=== PATIENT | female | born 1980 | race American Indian/Alaskan Native ===

== ENCOUNTER 2025-05-13 08:15 | Day surgery (SDC) | payer BC ==
[2025-05-07 08:52] VITALS: BP 135/75
[~2025-05-13] VITALS: Ht 170.2 cm; Wt 83.6 kg
[~2025-05-13 08:15] MED LIST: CLINDAMYCIN PHOSPHATE/D5W 900 MG/50 ML PIGGYBACK IV SCH; IBLOOD GLUCOSE TEST STRIP 1 EA TEST VI PRN; LACTATED RINGER'S 1,000 ML IV SCH; LIDOCAINE HCL 1% 5 ML SDV INJ ONE; LISINOPRIL2.5 MG PO; METFORMIN HCL750 M1 PO
[2025-05-13 08:35] VITALS: BP 152/83
[2025-05-13] MEDS ORDERED: DEXAMETHASONE SOD PHOS 4 MG/ML VIAL ONE (10:51)
[2025-05-13] MEDS ORDERED: BACTRIM DS TAB1 EACH PO (14:02)
[2025-05-13 14:09] VITALS: BP 142/77
--- NOTE | 2025-05-13 14:40 | NUR ---
05/13/25 1440 Tanja Broderick 1332 PT ARRIVED IN PACU SLEEPY WITH NO C/O'S. RIGHT HAND COMPLETLY COVERED UP TO FOREARM. [address] AT BEDSIDE. ALL QUESTIONS ANSWERED. SIPPING ON WATER. 1410 DC INSTRUCTIONS GIVEN. 1415 LEFT VIA W/C.
== END 2025-05-13 14:15 | disposition short-term general hospital (02) ==
LOC: DS 08:15 → OPS 08:15 → DS 13:30 → EDBD 13:30 → OPS 13:30
PROVIDERS: ATTEND Surgery
PROC: 0JCJ0ZZ Extirpation of Matter from Right Hand Subcutaneous Tissue and Fascia, Open Approach (ICD-10-PCS; principal; 2025-05-13 11:10)
DX: S61.041A Puncture wound with foreign body of right thumb without damage to nail, initial encounter (principal); L02.511 Cutaneous abscess of right hand; E78.5 Hyperlipidemia, unspecified; I10 Essential (primary) hypertension; E11.3299 Type 2 diabetes mellitus with mild nonproliferative diabetic retinopathy without macular edema, unspecified eye; Z79.84 Long term (current) use of oral hypoglycemic drugs; Z79.899 Other long term (current) drug therapy; Z88.0 Allergy status to penicillin; Z88.6 Allergy status to analgesic agent; X58.XXXA Exposure to other specified factors, initial encounter; Y99.0 Civilian activity done for income or pay
CPT/HCPCS: 00400; 36415; 76882; 84703; 87070; 87075; 87205; J1100; J2405; J2704; J3490; J7121

== ENCOUNTER 2025-07-27 22:33 | Emergency (ER) | payer BC ==
[~2025-07-27] VITALS: Ht 170.2 cm; Wt 80.2 kg
[~2025-07-27 22:33] MED LIST changes: +BACTRIM DS TAB1 EACH PO; -CLINDAMYCIN PHOSPHATE/D5W 900 MG/50 ML PIGGYBACK IV SCH; -IBLOOD GLUCOSE TEST STRIP 1 EA TEST VI PRN; -LACTATED RINGER'S 1,000 ML IV SCH; -LIDOCAINE HCL 1% 5 ML SDV INJ ONE
[2025-07-27] MEDS ORDERED: SODIUM CHLORIDE 0.9% 1,000 ML IV ONE (23:00)
[2025-07-27] MEDS ORDERED: MORPHINE SULFATE 4 MG/ML VIAL IV ONE (23:00)
[2025-07-27 23:22] LABS: BASOPHILS 0.3 % (0.1-1.2); EOSINOPHILS 0.7 % (0.7-5.8); LYMPHOCYTES 13.1 % (19.3-51.7); MCH 28.1 PG (25.6-32.2); MCHC 33.8 g/dL (32.2-35.5); MCV 82.9 fL (79.4-94.8); MONOCYTES 5.2 % (4.7-12.5); NEUTROPHILS 80.2 % (34.0-71.1); RBC 4.74 M/uL (3.93-5.22)
[2025-07-27 23:38] LABS: ALT (SGPT) 19.0 U/L (14-59); AST (SGOT) 12.0 U/L (15-37); GLOMERULAR FILTRATION RATE,EST 109.0 mL/min (>60); PROTEIN, TOTAL 7.8 g/dL (6.4-8.2); UREA NITROGEN 7.0 mg/dL (7-18)
[2025-07-28] MEDS ORDERED: HYDROCODON-ACE1 EA10 PO (01:04)
[2025-07-28] MEDS ORDERED: CIPRO500 MG PO (01:04)
[2025-07-28] MEDS ORDERED: ONDANSETRON ODT8 MG PO (01:04)
[2025-07-28] MEDS ORDERED: METRONIDAZOLE500 MG PO (01:04)
[2025-07-28] MEDS ORDERED: methylPREDNISolone 4 MG HOME.PACK PO ONE (01:15)
[2025-07-28] MEDS ORDERED: ONDANSETRON 4 MG HOME.PACK SL ONE (01:15)
[2025-07-28] MEDS ORDERED: CIPROFLOXACIN 500 MG TAB PO ONE (01:15)
[2025-07-28] MEDS ORDERED: HYDROCODONE BIT/ACETAMINOPHEN 5/325 MG 1 TAB HOME.PACK PO ONE (01:15)
[2025-07-28 01:29] VITALS: BP 127/71
== END 2025-07-28 01:30 | disposition home or self-care (01) ==
LOC: ED 22:33
PROVIDERS: Family Medicine
DX: K52.9 Noninfective gastroenteritis and colitis, unspecified (principal); D28.7 Benign neoplasm of other specified female genital organs; E11.9 Type 2 diabetes mellitus without complications; I10 Essential (primary) hypertension; Z88.0 Allergy status to penicillin; Z88.6 Allergy status to analgesic agent; Z79.84 Long term (current) use of oral hypoglycemic drugs; Z79.899 Other long term (current) drug therapy; Z88.8 Allergy status to other drugs, medicaments and biological substances
CPT/HCPCS: 74177; 80053; 83690; 84703; 85025; 96374; 96375; 99284-25; A9270; J2270; J2405; J7030; Q9967